=== PATIENT | male | born 1950 | race Caucasian/White ===

== ENCOUNTER 2017-06-18 18:33 | Emergency (ER) | payer BC ==
[~2017-06-18] VITALS: Ht 162.6 cm; Wt 67.1 kg
--- NOTE | 2017-06-18 18:33 | NUR ---
[facility] 89 FROM HOME FOR ALOC AND DIFFICULTY TALKING STARTED 1PM TODAY. PLACED ON MONITOR. DR MOHR MADE AWARE.
--- NOTE | 2017-06-18 18:39 | NUR ---
DR MOHR AT BEDSIDE
--- NOTE | 2017-06-18 18:40 | NUR ---
CODE STROKE ACTIVATED
--- NOTE | 2017-06-18 18:42 | NUR ---
PT TAKEN TO CT
[2017-06-18] MEDS ORDERED: IV NS 0.9% 250 ML IV ONE (18:44)
[2017-06-18] MEDS ORDERED: IOHEXOL-350 100 ML VIAL IV ONE (18:44)
--- NOTE | 2017-06-18 18:44 | NUR ---
TELESTROKE NEUROLOGY CALLED. DR RAINEY WILL CALL BACK.
--- NOTE | 2017-06-18 18:51 | NUR ---
PER FAMILY LAST KNOWN WELL 3PM
--- NOTE | 2017-06-18 18:59 | NUR ---
PT RETURNED FROM CT.
[2017-06-18 19:05] LABS: BASOPHILS # (AUTO) 0.1 /CMM (0.0-0.2); BASOPHILS % (AUTO) 1.3 % (0.0-2.0); EOSINOPHILS # (AUTO) 0.2 /CMM (0.0-0.7); EOSINOPHILS % (AUTO) 2.6 % (0.0-6.0); HEMATOCRIT 40 % (39-51); HEMOGLOBIN 13.3 g/dL (13.5-17.5); LYMPHOCYTES # (AUTO) 2.3 /CMM (0.8-4.8); LYMPHOCYTES % (AUTO) 33.7 % (20.0-44.0); MEAN CORPUSCULAR HEMOGLOBIN 30 PG (26.0-33.0); MEAN CORPUSCULAR HGB CONC 33 g/dl (31.0-36.0); MEAN CORPUSCULAR VOLUME 89 fL (80-96); MONOCYTES # (AUTO) 0.6 /CMM (0.1-1.30); MONOCYTES % (AUTO) 8.3 % (2.0-12.0); NEUTROPHILS # (AUTO) 3.6 /CMM (1.8-8.9); NEUTROPHILS % (AUTO) 54.1 % (43.0-81.0); PLATELET COUNT (AUTO) 329 /CMM (150-450); RDW COEFFICIENT OF VARIATION 12.6 (11.5-15.0); RED BLOOD CELL COUNT(AUTO) 4.46 MIL/uL (4.5-6.0); WHITE BLOOD COUNT (AUTO) 6.8 K/uL (4.3-11.0)
--- NOTE | 2017-06-18 19:05 | NUR ---
RECEIVED REPORT FROM TATA NOLAN FOR [place].
--- NOTE | 2017-06-18 19:09 | NUR ---
DR. RAINEY NEUROLOGIST SPEAKING TO PT/ FAMILY VIA VIDEO MONITOR. DR. MOHR AT BEDSIDE
--- NOTE | 2017-06-18 19:10 | NUR ---
CALLED [facility] NURSING MOLDED PARTS INSPECTOR. NOTIFIED THAT CCT NURSE WILL CALL BACK FOR REPORT.
[2017-06-18] MEDS ORDERED: ALTEPLASE 1 VIAL ONE (19:11)
--- NOTE | 2017-06-18 19:11 | NUR ---
RECEIVED CALL FROM WALKER AT [facility]. [facility]
--- NOTE | 2017-06-18 19:12 | NUR ---
PHARMACY AT BEDSIDE FOR TPA, CALCULATION PER WEIGHT = 60.3 ML. BOLUS 6ML. ACTIVASE TO RUN AT 54.3 ML/HR
[2017-06-18 19:16] LABS: CALCIUM, SERUM 8.8 mg/dL (8.5-10.1); CARBON DIOXIDE 25 mmol/L (21-32); CHLORIDE 104 mmol/L (98-107); CREATININE 1.3 mg/dL (0.6-1.3); GLUCOSE 93 mg/dL (74-106); POTASSIUM 3.5 mmol/L (3.5-5.1); SODIUM SERUM 138 mmol/L (136-145); UREA NITROGEN, BLOOD 25 mg/dL (7-18)
--- NOTE | 2017-06-18 19:16 | NUR ---
PER PT INFORMED DR. RAINEY (VIA TELE ACTIVATOR) AND DR. MOHR PT LAST KNOWN WELL TIME 1PM.
[2017-06-18 19:19] LABS: INR 1.03 (0.87-1.13); PROTHROMBIN TIME 10.7 SECS (9.5-12.7)
--- NOTE | 2017-06-18 19:19 | NUR ---
GAVE REPORT TO SKYE FOR [place]
[2017-06-18 19:24] LABS: TROPONIN I < 0.017 ng/mL (0.00-0.056)
[2017-06-18] MEDS ORDERED: ALTEPLASE 100 MG in WATER FOR INJECTION,STERILE 100 ML IV ONE (19:30)
--- NOTE | 2017-06-18 19:33 | NUR ---
CALLED [facility], CREW IS ON ROUTE W/ ETA LESS THAN 10 MINS.
[2017-06-18 19:44] VITALS: BP 152/102
--- NOTE | 2017-06-18 19:50 | NUR ---
REPORT GIVEN TO CCT TATA CUTLER.
--- NOTE | 2017-06-18 20:07 | NUR ---
PT TRANSFERRED TO [facility] VIA [facility] WITH CCT UNIT. PT AWARE OF TRANSFER. VSS. IV ON LEFT FA 20G INTACT AND PATENT. NO S/S INFECTION OF INFILTRATION NOTED. PT GOWNED AND WITH ALL PERSONAL BELONGINGS. PER TATA CUTLER / CCT MARGARINE CHURN OPERATOR TOOK OVER CARE.
== END 2017-06-18 20:11 ==
LOC: ER 18:34
DX: I63.9 Cerebral infarction, unspecified (principal); E78.00 Pure hypercholesterolemia, unspecified; R47.01 Aphasia
CPT/HCPCS: 36415; 70450; 70496; 70498; 71010; 80048; 84484; 85025; 85730; 93005; 99291; A4606; J7050; Q9967; Z7610; J2997